=== PATIENT | male | born 1990 | race Caucasian/White ===

== ENCOUNTER → 2025-01-11 | Outpatient (BNVA) | payer BC, MEDICAID, OTHER, SELFPAY | END | disposition home or self-care (01) | PROVIDERS: PCP Family Medicine; Referring Provider Family Medicine; Visit Provider Urology | DX: N41.9 Inflammatory disease of prostate, unspecified (principal); Z30.2 Encounter for sterilization | CPT/HCPCS: 81003; 99202; G0463 ==

== ENCOUNTER 2025-01-24 07:40 | Day surgery (SDC) | payer BC, SELFPAY ==
[2025-01-23 09:25] VITALS: BMI 25.4
--- NOTE | 2025-01-23 09:33 | SUR.PREOP ---
Interviewed done over the phone pt intructed to keep NPO after MN including water, clip pubic hair and come in at 0800 tomorrow.
[2025-01-24] VITALS (7 sets, daily range): BP systolic 100–117; BP diastolic 67–78; PULSE 65–80; RESP 12–18; TEMP 36.5–37.2; O2SAT 97–100; BMI 25.2
[2025-01-24] MEDS: RINGERS LACTATED 1000 ML 1,000 ML 20 ML IV (08:24)
--- NOTE | 2025-01-24 11:46 | SUR.PHASEI ---
pt arrived to PACU via gurney drowsy but arouses to voice, breathing unlabored, dressing to scrotum clean, dry, and intact with scrotal support in place, report from Alex FLORES, Landry GARCIA, and Dr Springer
--- NOTE | 2025-01-24 11:46 | PD.SUROPNT ---
Date of Procedure 01/24/25 Pre Op Diagnosis Elective sterilization Post Op Diagnosis Same Procedure Bilateral vasectomy Findings Bilateral vas Procedure Description This is 34-year-old gentleman he is not he does not have any children he desired bilateral vasectomy patient was counseled about bilateral vasectomy patient wanted to go for the procedure. Procedure and complications were discussed with patient in great detail informed consent is obtained he understood very well there is no warranty for permanent sterilization literature regarding bilateral vasectomy was provided to the patient Procedure patient was brought to the operating room in a satisfactory condition after appropriate premedication was put on the operating table in a supine position he was appropriately identified by surgeon and operating room staff site scope and indications of the procedure were reconfirmed with the patient general anesthesia was given uneventfully parts were prepped and draped in a usual sterile fashion. Next the right vas deferens was palpated between 2 fingers and a thumb 2% lidocaine with quarter percent Marcaine was instilled appropriately vertical skin incision was made proper hemostasis was secured. Next the vas deferens was brought into the incision it was from its various fascial coverings between 2 silver clips centimeter of the vas deferens was excised. The lumen of the vas deferens was diathermized with coagulation diathermy distal end of the vas deferens was buried between various fascial layers. Skin was approximated with 3-0 chromic. Similar procedure was repeated on the opposite side. Next this sterile dressings were applied. Pressure bandage was given Patient having tolerated the procedure well and was sent to recovery room in a satisfactory condition to be discharged home with full postoperative instructions were verbally as well as in writing to be followed in urology office in 6 weeks' time. Anesthesia GETA Pathology / specimen None Estimated Blood Loss 1 Condition Stable Disposition PACU Surgeon Slime Dsah MD Surgical Staff Operation Date: 01/24/25 10:15 Case Staff Anesthesiologist: Robles Springer
--- NOTE | 2025-01-24 12:11 | SUR.PHASEI ---
pt tolerating ice chips without difficulty swallowing or n/v
--- NOTE | 2025-01-24 12:18 | SUR.PHASEII ---
report to Latasha Hill RN
--- NOTE | 2025-01-24 12:42 | SUR.PHASEII ---
1242 patient meets discharge criteria from recovery, awake and alert, breathing unlabored, vital signs stable, denies pain, dressing intact; no bleeding noted, drinking fluids; denies nausea, able to dress himself into his clothing, discharge instructions given to patient and patients brother, brother signed discharge instructions. Patient given all his belongings prior to discharge, transportred via wheelchair and left in a private vehicle.
== END 2025-01-24 12:42 | disposition home or self-care (01) ==
PROVIDERS: Referring Provider Urology; Visit Provider Urology
PROC: (CPT 55250; principal; 2025-01-24 10:00)
DX: Z30.2 Encounter for sterilization (principal)
CPT/HCPCS: 55250; A4649; J1100; J2250; J2371; J2405; J2704; J2765; J3010; J7120; A9270

== ENCOUNTER → 2025-03-08 | Outpatient (BNVA) | payer BC, OTHER, SELFPAY | END | disposition home or self-care (01) | PROVIDERS: PCP Family Medicine; Referring Provider Family Medicine; Visit Provider Urology | DX: N40.1 Benign prostatic hyperplasia with lower urinary tract symptoms (principal); R39.12 Poor urinary stream | CPT/HCPCS: 51741; 51798 ==

== ENCOUNTER → 2025-03-19 | Outpatient (BNVA) | payer BC, OTHER, SELFPAY | END | disposition home or self-care (01) | PROVIDERS: PCP Family Medicine; Referring Provider Family Medicine; Visit Provider Urology | DX: N40.1 Benign prostatic hyperplasia with lower urinary tract symptoms (principal); N13.8 Other obstructive and reflux uropathy | CPT/HCPCS: 76872 ==

== ENCOUNTER → 2025-04-06 | Outpatient (CLI) | payer BC, OTHER, SELFPAY ==
[2025-04-06 16:24] LABS: Post Vasectomy Sperm Presence No Spermatozoa Seen (No Sperm)
== END | disposition home or self-care (01) ==
LOC: SLDO 15:54
PROVIDERS: Referring Provider Urology; Visit Provider Urology
DX: Z30.8 Encounter for other contraceptive management (principal); Z98.52 Vasectomy status
CPT/HCPCS: 89321